=== PATIENT | male | born 1970 | race Caucasian/White ===

== ENCOUNTER 2018-02-16 08:36 | Emergency (ER) | payer OTHER ==
[~2018-02-16] VITALS: Ht 180.3 cm; Wt 81.2 kg
[2018-02-16 08:46] VITALS: Ht 180.3 cm; Wt 81.2 kg
[2018-02-16 10:52] VITALS: BP 130/64
== END 2018-02-16 10:52 | disposition home or self-care (01) ==
LOC: ED 08:36
DX: H66.91 Otitis media, unspecified, right ear (principal); H10.9 Unspecified conjunctivitis; R05 Cough
CPT/HCPCS: 87804; J1100